=== PATIENT | male | born 1990 | race American Indian/Alaskan Native ===

== ENCOUNTER 2016-04-22 13:14 | Inpatient (IN) | payer OTHER ==
[2016-04-22 14:24] LABS: Basophils % (Auto) 0.4 % (0.0-1.8); Eosinophils % (Auto) 0.5 % (0.0-4.3); Hematocrit 38.3 % (35.5-45.6); Mean Corpuscular HGB Conc 31 % (32-34); Platelet Count 341 K/mm3 (140-440); Red Blood Count 5.57 M/mm3 (3.65-5.03); Red Cell Distribution Width 15.4 % (13.2-15.2); White Blood Count 12.2 K/mm3 (4.5-11.0)
[2016-04-22 14:36] LABS: Mean Corpuscular Hemoglobin 22 pg (28-32); Mean Corpuscular Volume 69 fl (84-94)
[2016-04-22 14:42] LABS: Anion Gap 15 mmol/L; Blood Urea Nitrogen 8 mg/dL (9-20); Calcium 8.9 mg/dL (8.4-10.2); Carbon Dioxide 27 mmol/L (22-30); Chloride 100.8 mmol/L (98-107); Glucose 129 mg/dL (75-100); Sodium 139 mmol/L (137-145)
[2016-04-22] MEDS ORDERED: MORPHINE IV ONE (15:09)
[2016-04-22] MEDS ORDERED: NACL 0.9% 1000 ML 1,000 ML IV ONE (15:09)
--- NOTE | 2016-04-22 15:13 | Emergency Department Report ---
HPI - General Chief Complaint: Chest Pain Time Seen by Provider: 04/22/16 15:00 - HPI HPI: The patient is a 25-year-old male who presents for evaluation of chest pain. The patient reports left-sided chest pain since 2 PM yesterday, constant since onset, aching and pressure-like in quality, radiating into the left arm, currently 7 out of 10 in severity. He states that his pain is exacerbated with taking deep breaths. He says that his symptoms began after completing a cardio workout yesterday, 30min- 1 hour duration. His symptoms began shortly after his workout. The patient denies fever, cough, syncope, dyspnea, hemoptysis, unilateral leg swelling, recent immobilization, history of DVT or PE, hx cancer , history of congenital heart disease, or history of sudden cardiac in family members. He shares that he consumes marijuana, but denies cocaine use, amphentermine use, meth the use, or other stimulant use. ED Past Medical Hx - Past Medical History Hx Diabetes: Yes (PREDIABETIC) Additional medical history: "PREANEMIC" - Surgical History Past Surgical History?: No - Social History Smoking Status: Never Smoker Substance Use Type: Alcohol, Marijuana - Medications Home Medications: Home Medications Medication Instructions Recorded Confirmed Last Taken Type No Known Home Medications [No 04/22/16 04/22/16 Unknown History Reported Home Medications] ED Review of Systems ROS: Stated complaint: CHEST PAIN Other details as noted in HPI Constitutional: denies: fever ENT: denies: throat or neck pain Respiratory: denies: cough, shortness of breath Cardiovascular: reports chest pain Endocrine: denies unexplained weight loss or gain Gastrointestinal: denies: abdominal pain, nausea Genitourinary: denies: dysuria Musculoskeletal: denies: leg swelling Skin: denies: rash Neurological: denies: headache Hematological/Lymphatic: denies: easy bleeding or easy bruising Psych: denies sadness or hopelessness Physical Exam - Physical Exam Vital Signs: Vital Signs 04/22/16 04/22/16 04/22/16 13:31 15:00 15:02 Temperature 98.6 F Pulse Rate 74 100 H 101 H Respiratory 18 18 23 Rate Blood Pressure 120/75 O2 Sat by Pulse 98 100 100 Oximetry Physical Exam: General: well-nourished, well-developed, no acute distress Head: Normocephalic, atraumatic Eyes: normal sclera ENT: Mucous membranes are pink and moist Neck: trachea midline, neck supple, No neck stiffness, no cervical adenopathy Respiratory: Breath sounds equal bilaterally, no wheezing, rales, or rhonchi Cardio: S1 and S2 present, no murmurs, rubs, gallops, capillary refill is brisk Musc: No pitting edema Skin: No rash Neuro: no facial drooping, normal speech Psych: Normal affect ED Course Vital Signs 04/22/16 04/22/16 04/22/16 13:31 15:00 15:02 Temperature 98.6 F Pulse Rate 74 100 H 101 H Respiratory 18 18 23 Rate Blood Pressure 120/75 O2 Sat by Pulse 98 100 100 Oximetry ED Medical Decision Making - Lab Data Result diagrams: 04/22/16 14:11 04/22/16 14:11 - Medical Decision Making The patient was seen and examined by myself. The patient is placed on a monitor technician and continuous pulse ox. On initial evaluation, the patient was found to be in no distress. Evaluation orders were placed. EKG exhibited nonspecific T wave changes, and is negative for ST elevation or depression suggestive of acute cardiac infarct. The patient is given IV morphine for his pain. Lab results revealed elevated troponin level of 1.5, consistent with non- ST elevation NC. Chest x-rays negative the patient given a tablet of aspirin. IV heparin bolus and infusion are ordered. CT angiogram of the chest is negative for pulmonary embolism or aortic dissection. The on-call hospitalist service was contacted. They agreed to admit the patient for further treatment and close monitoring. The ED admit order was placed. The patient was admitted in guarded condition. Critical care attestation.: If time is entered above; I have spent that time in minutes in the direct care of this critically ill patient, excluding procedure time. ED Disposition Clinical Impression: Acute chest pain, NSTEMI (non-ST elevated myocardial infarction) Disposition: OP ADMITTED IP TO THIS HOSP Is pt being admited?: Yes Does the pt Need Aspirin: Yes Condition: Serious Time of Disposition: 15:03
--- NOTE | 2016-04-22 15:18 | XRay Report ---
CHEST ONE VIEW INDICATION: Left-sided chest pain for 2 days. Smoker. COMPARISON: None similar at this institution. FINDINGS: Portable, single, frontal chest radiograph demonstrates normal cardiomediastinal silhouette. Clear lungs. Unremarkable bones. Extrinsic EKG leads. CONCLUSION: No acute disease in the chest. Thank you for the opportunity to participate in this patient's care.
[2016-04-22 15:31] LABS: Urine Drugs of Abuse Note Disclamer
--- NOTE | 2016-04-22 15:40 | Admit Criteria Form ---
Admission Criteria Documentation: MYOCARDIAL INFARCTION Clinical Indications for Admission to Inpatient Care (Place 'X' for any and all applicable criteria): Admission is indicated for ANY ONE of the following (1)(2)(3)(4): [X ]I. Acute UT [ ]II. Contraindications and/or Inappropriate clinical situations for Observational Care in patients with Myocardial Infarction, when ANY ONE of the following is required: [ ]a) Patient with High risk of cardiac embolism (e.g, patients with previous cardiac embolism, LVEF < 40%, age >75 and patients with prosthetic valve) 18 [ ]b) Patient with Moderate risk including DM patient, CAD and patient aged 65-75 18 [ ]c) Patient with any change in cardiac biomarker especially troponin should be managed as high risk in an inpatient setting 19 [ ]d) Physician judgement irrespective of ECG and other diagnostic findings 20 [ ]III.General contraindications and/or Inappropriate clinical situations for Observational Care in patients with Myocardial Infarction, when ANY ONE of the following is required: [ ]a) Prediction of prolongation of LOS based on ANY ONE of the following may be considered as a contraindication for observational care 2, 3, 4, 5, 6, 7, 8, 9, 10, 11 [ ]i) Age > 65 yrs. [ ]ii) Patient arriving by ambulance [ ]iii) Patient with high acuity [ ]iv) Patient requiring vital sign monitoring [ ]v) Patient on IV medication [ ]b) Systolic blood pressures 180mmHg 3,12 [ ]c) Patient with altered mental status including delirium and other alteration of consciousness, (3) [ ]d) Patient whose discharge disposition will be to a care home home or rehabilitation home should not be managed in Emergency Department Observation Unit. CMS rule requires 3 days hospital stay before such placement. 3,13 [ ]e) Patient with failure to thrive due to broad array of etiologies 3 ,16,17 [ ]f) Inability to ambulate 3,14 Extended stay beyond goal length of stay may be needed for (1)(18)(20)(24)(25): [ ]a) Hemodynamic instability, persisting symptoms after intensive medical management, or recurring severe, prolonged symptoms [ ]b) Intravascular procedural complications such as acute vessel closure, stent thrombosis, stent malposition, or vessel dissection (26)(27)(28) [ ]c) Extravascular procedural complications such as retroperitoneal hematoma , pericardial effusion, or cardiac tamponade [ ]d) Entry site complications causing bleeding, hematoma or distal ischemia and requiring ongoing monitoring, surgical repair or surgical thrombectomy(29) [ ]e) Dangerous arrhythmia [ ]f) Complicated percutaneous coronary intervention (e.g., unsuccessful percutaneous coronary intervention or percutaneous coronary intervention of non- sleetmute vessel) [ ]g) Urgent or emergent surgery for complications of UT (e.g., ventricular rupture, valvular insufficiency) [ ]h) Surgical revascularization via coronary artery bypass graft [ ]i) Heart failure (e.g., pulmonary edema) [ ]j) Unstable pulmonary comorbidities, including COPD or pneumonia (31) [ ]k) Acute renal failure The original [employer] content created by [employer] has been revised. The portions of the content which have been revised are identified through the use of italic text or in bold, and [employer] has neither reviewed nor approved the modified material. All other unmodified content is copyright [facility] Please see references footnoted in the original [facility] edition 2016 Admission Criteria Met: Yes
[2016-04-22 15:46] LABS: Cholesterol 173 mg/dL (50-199); HDL Cholesterol 22 mg/dL (40-59); LDL Cholesterol,Direct 134 mg/dL (50-130); Triglycerides 85 mg/dL (2-149)
[2016-04-22 15:50] LABS: Creatine Kinase MB 42.7 ng/mL (0.0-4.0)
[2016-04-22] MEDS ORDERED: BABY ASPIRIN PO ONE (15:54)
[2016-04-22] MEDS ORDERED: HEPARIN 10,000 UNITS/10 ML IV ONE (15:55)
--- NOTE | 2016-04-22 15:57 | Cat Scan Report ---
CTA CHEST INDICATION: Pleuritic chest pain, elevated troponin. COMPARISON: None similar. FINDINGS: Chest CTA performed following intravenous administration of 100 cc of Omnipaque 350. Rotational MIP's also obtained. Top normal heart size with slightly prominent contour towards the apex. No effusions. No aortic aneurysm, dissection or suspicious pulmonary arterial filling defects. No size significant adenopathy with few small AP window lymph nodes measuring up to 5 mm in the short axis, axial image 81, series 2. Minimal residual thymus with normal mediastinal contours. Normal airway. Unremarkable thyroid. Clear lungs. Images through included upper abdomen reveal no significant abnormality. Unremarkable bones. CONCLUSION: No CT evidence of pulmonary embolism with few other incidental findings, as above. Thank you for the opportunity to participate in this patient's care.
[2016-04-22] MEDS ORDERED: MILK OF MAGNESIA PO PRN (16:15)
[2016-04-22] MEDS ORDERED: MORPHINE IV PRN (16:15)
[2016-04-22] MEDS ORDERED: ZOFRAN IV PRN (16:15)
[2016-04-22] MEDS ORDERED: DULCOLAX PR PRN (16:15)
[2016-04-22] MEDS ORDERED: TYLENOL PO PRN (16:15)
[2016-04-22] MEDS ORDERED: ZOCOR PO ONE (16:30)
[2016-04-22] MEDS ORDERED: HEPARIN/ 0.45% NACL-25,000 UNIT/500 ML 25,000 UNIT/500 ML BAG IV SCH (17:00)
[2016-04-22] MEDS ORDERED: ZOCOR ONE (17:12)
[2016-04-22 17:23] LABS: Hematocrit 35.8 % (35.5-45.6); Hemoglobin 11.2 gm/dl (11.8-15.2)
[2016-04-22 17:31] LABS: INR 1.01 (0.87-1.13)
[2016-04-22 17:32] LABS: Partial Thromboplastin Time 32.6 Sec. (24.2-36.6)
--- NOTE | 2016-04-22 18:23 | History and Physical Report ---
History of Present Illness Date of examination: 04/22/16 Date of admission: 04/22/16 16:16 Chief complaint: Chest pain History of present illness: Patient is a pleasant 5-year-old male with no significant past medical history who presents to the ER will complain of intermittent chest pain and left sided since 2 PM yesterday aching in nature and also pressure-like sensation radiating down to the left arm. Was a 7/10 in intensity at the time of presented to the ER. The patient reports that this started about an hour after a 1 hour intense cardio exercise. He reports no aggravating or alleviating factors. He reports that he is chest pain-free at this time. It was associated with some shortness of breath but no diaphoresis. While he denies cocaine use he doesn't endorse to marijuana use. He also denies use of amphetamines metformin and sliding of the stimulants. He denies use of drugs like monster or red bull. The patient reports that he has had intermittent chest pain since he was a kid. He denies history of any sudden cardiac in the family although states that his paternal grandfather did have an MO at the age of 61. ROS Constitutional: No fever, fatigue or weight loss. Skin: No rash. Eyes: No recent vision problems or eye pain. ENT: No congestion, ear pain, or sore throat. Endocrine: No thyroid problems. Cardiovascular: Reports chest pain radiated to the left arm Respiratory: No cough, shortness of breath, congestion, or wheezing. Gastrointestinal: No abdominal pain, nausea, vomiting, or diarrhea. Genitourinary: No dysuria. Musculoskeletal: No joint swelling. Neurologic: No seizures. Hematologic: No unusual bruising or bleeding. Psychiatric: No psychiatric problems, hallucinations or depression. All other systems reviewed and otherwise negative. Past History Past Medical History: other (diabetic) Past Surgical History: No surgical history Social history: smoking, full code. denies: alcohol abuse, prescription drug abuse, IV drug use Family history: CAD (paternal grandfather) Medications and Allergies Allergies Allergy/AdvReac Type Severity Reaction Status Date / Time No Known Allergies Allergy Unverified 04/22/16 13:36 Home Medications Medication Instructions Recorded Confirmed Last Taken Type No Known Home Medications [No 04/22/16 04/22/16 Unknown History Reported Home Medications] Active Meds: Active Medications Acetaminophen (Tylenol) 650 mg PO Q4H PRN PRN Reason: Pain MILD(1-3)/Fever >100.5/SALDANA Aspirin (Aspirin) 325 mg PO QDAY EVA Bisacodyl (Dulcolax) 10 mg HI QDAY PRN PRN Reason: Constipation unrelieved by MOM Famotidine (Pepcid) 20 mg PO BID EVA Heparin Sodium/Sodium Chloride (Heparin/ 0.45% Nacl-25,000 Unit/500 Ml) 25,000 unit in 500 mls @ 20 mls/hr IV TITRATE EVA; 1,000 UNITS/HR PRN Reason: Protocol Magnesium Hydroxide (Milk Of Magnesia) 30 ml PO Q4H PRN PRN Reason: Constipation Morphine Sulfate (Morphine) 2 mg IV Q4H PRN PRN Reason: Pain, Moderate (4-6) Ondansetron HCl (Zofran) 4 mg IV Q8H PRN PRN Reason: N/V unrelieved by Reglan Exam - Physical Exam Narrative exam: VITAL SIGNS: Reviewed. GENERAL: The patient appeared well nourished and normally developed. Vital signs as documented. HEAD: No signs of head trauma. EYES: Pupils are equal. Extraocular motions intact. EARS: Hearing grossly intact. MOUTH: Oropharynx is normal. NECK: No adenopathy, no JVD. CHEST: Chest with clear breath sounds bilaterally. No wheezes, rales, or rhonchi. CARDIAC: Regular rate and rhythm. S1 and S2, without murmurs, gallops, or rubs. VASCULAR: No Edema. Peripheral pulses normal and equal in all extremities. ABDOMEN: Soft, without detectable tenderness. No sign of distention. No rebound or guarding, and no masses palpated. Bowel Sounds normal. MUSCULOSKELETAL: Good range of motion of all major joints. Extremities without clubbing, cyanosis or edema. NEUROLOGIC EXAM: Alert and oriented x 3. No focal sensory or strength deficits. Speech normal. Follows commands. PSYCHIATRIC: Mood normal. SKIN: No rash or lesions. - Constitutional Vitals: Temp Pulse Resp BP Pulse Ox 98.6 F 81 21 116/68 97 04/22/16 13:31 04/22/16 18:00 04/22/16 18:00 04/22/16 18:00 04/22/16 18:00 Results - Labs CBC & Chem 7: 04/22/16 16:17 04/22/16 14:11 Labs: Laboratory Last Values WBC 12.2 K/mm3 (4.5-11.0) H 04/22/16 14:11 RBC 5.57 M/mm3 (3.65-5.03) H 04/22/16 14:11 Hgb 11.2 gm/dl (11.8-15.2) L 04/22/16 16:17 Hct 35.8 % (35.5-45.6) 04/22/16 16:17 MCV 69 fl (84-94) L 04/22/16 14:11 MCH 22 pg (28-32) L 04/22/16 14:11 MCHC 31 % (32-34) L 04/22/16 14:11 RDW 15.4 % (13.2-15.2) H 04/22/16 14:11 Plt Count 321 K/mm3 (140-440) 04/22/16 16:17 Lymph % (Auto) 11.9 % (13.4-35.0) L 04/22/16 14:11 Harvey % (Auto) 5.5 % (0.0-7.3) 04/22/16 14:11 Eos % (Auto) 0.5 % (0.0-4.3) 04/22/16 14:11 Baso % (Auto) 0.4 % (0.0-1.8) 04/22/16 14:11 Lymph # 1.5 K/mm3 (1.2-5.4) 04/22/16 14:11 Harvey # 0.7 K/mm3 (0.0-0.8) 04/22/16 14:11 Eos # 0.1 K/mm3 (0.0-0.4) 04/22/16 14:11 Baso # 0.0 K/mm3 (0.0-0.1) 04/22/16 14:11 Seg Neutrophils % 81.7 % (40.0-70.0) H 04/22/16 14:11 Seg Neutrophils # 10.0 K/mm3 (1.8-7.7) H 04/22/16 14:11 PT 13.2 Sec. (12.2-14.9) 04/22/16 16:17 INR 1.01 (0.87-1.13) 04/22/16 16:17 APTT 32.6 Sec. (24.2-36.6) 04/22/16 16:17 Sodium 139 mmol/L (137-145) 04/22/16 14:11 Potassium 4.0 mmol/L (3.6-5.0) 04/22/16 14:11 Chloride 100.8 mmol/L (98-107) 04/22/16 14:11 Carbon Dioxide 27 mmol/L (22-30) 04/22/16 14:11 Anion Gap 15 mmol/L 04/22/16 14:11 BUN 8 mg/dL (9-20) L 04/22/16 14:11 Creatinine 0.8 mg/dL (0.8-1.5) 04/22/16 14:11 Estimated GFR > 60 ml/min 04/22/16 14:11 BUN/Creatinine Ratio 10.00 % 04/22/16 14:11 Glucose 129 mg/dL (75-100) H 04/22/16 14:11 Calcium 8.9 mg/dL (8.4-10.2) 04/22/16 14:11 Total Creatine Kinase 887 units/L (55-170) H 04/22/16 16:17 CK-MB (CK-2) 42.7 ng/mL (0.0-4.0) H 04/22/16 15:17 Troponin T 1.520 ng/mL (0.00-0.029) H* 04/22/16 15:17 NT-Pro-B Natriuret Pep 146.0 pg/mL (0-450) 04/22/16 15:17 Triglycerides 85 mg/dL (2-149) 04/22/16 14:11 Cholesterol 173 mg/dL (50-199) 04/22/16 14:11 LDL Cholesterol Direct 134 mg/dL (50-130) H 04/22/16 14:11 HDL Cholesterol 22 mg/dL (40-59) L 04/22/16 14:11 Cholesterol/HDL Ratio 7.86 % 04/22/16 14:11 Urine Opiates Screen Presumptive negative 04/22/16 15:25 Urine Methadone Screen Presumptive negative 04/22/16 15:25 Ur Barbiturates Screen Presumptive negative 04/22/16 15:25 Ur Phencyclidine Scrn Presumptive negative 04/22/16 15:25 Ur Amphetamines Screen Presumptive negative 04/22/16 15:25 U Benzodiazepines Scrn Presumptive negative 04/22/16 15:25 Urine Cocaine Screen Presumptive negative 04/22/16 15:25 U Marijuana (THC) Screen Presumptive positive 04/22/16 15:25 Drugs of Abuse Note Disclamer 04/22/16 15:25 - Imaging and Cardiology EKG: image reviewed (normal sinus rhythm on my personal review) Chest x-ray: image reviewed (no acute pathology) CT scan - chest: image reviewed (no acute pathology on my personal review) Assessment and Plan Assessment and plan: Patient is a pleasant 5-year-old male with no significant past medical history who presents to the ER will complain of intermittent chest pain and left sided since 2 PM yesterday aching in nature and also pressure-like sensation radiating down to the left arm. Was a 7/10 in intensity at the time of presented to the ER. The patient reports that this started about an hour after a 1 hour intense cardio exercise. He reports no aggravating or alleviating factors. He reports that he is chest pain-free at this time. It was associated with some shortness of breath but no diaphoresis. While he denies cocaine use he doesn't endorse to marijuana use. He also denies use of amphetamines metformin and sliding of the stimulants. He denies use of drugs like monster or red bull. The patient reports that he has had intermittent chest pain since he was a kid. He denies history of any sudden cardiac in the family although states that his paternal grandfather did have an MO at the age of 61. * Non-ST elevated MO * Marijuana abuse * Microcytosis * Leukocytosis Plan * We'll admit patient to telemetry * Consult cardiology * Rule out rhabdomyolysis as a concurrent part of this * Extensive counseling provided to the patient on marijuana use patient verbalized understanding 15 minutes spent on counseling. * Start patient on management for unstable angina/and STEMI protocol * Morphine when necessary, oxygen, aspirin, statin * Obtain an echocardiogram * DVT and GI prophylaxis Advance Directives: Yes Plan of care discussed with patient/family: Yes
[2016-04-22 21:16] LABS: Creatine Kinase MB 30.5 ng/mL (0.0-4.0)
[2016-04-22] MEDS: PEPCID PO SCH (22:27)
[2016-04-22 23:31] LABS: Creatine Kinase MB 22.4 ng/mL (0.0-4.0)
[2016-04-23 06:27] LABS: Basophils % (Auto) 0.6 % (0.0-1.8); Hematocrit 37.9 % (35.5-45.6); Mean Corpuscular HGB Conc 32 % (32-34); Platelet Count 318 K/mm3 (140-440); Red Blood Count 5.56 M/mm3 (3.65-5.03); Red Cell Distribution Width 14.7 % (13.2-15.2); White Blood Count 11.1 K/mm3 (4.5-11.0)
[2016-04-23 06:30] LABS: Mean Corpuscular Hemoglobin 22 pg (28-32); Mean Corpuscular Volume 68 fl (84-94)
--- NOTE | 2016-04-23 09:39 | Consultation ---
History of Present Illness Consult date: 04/23/16 Consult reason: elevated troponin History of present illness: This is a 25yr old male with no significant past medical history whom is admitted with chest pain. Patient reports chest pain has progressively worsened over the last week. He associates chest pain with shortness of breath and dizziness. He denies palpitations. There was no syncope. An ECG shows a normal sinus rhythm. Cardiac enzymes measured in the ED reveals a CK of 773, CK/MB of 22.4 with an index of 2.8. Cardiac consultation requested. Past History Past Medical History: other (diabetic) Past Surgical History: No surgical history Social history: smoking, full code. denies: alcohol abuse, prescription drug abuse, IV drug use Family history: CAD (paternal grandfather) Medications and Allergies Allergies Allergy/AdvReac Type Severity Reaction Status Date / Time No Known Allergies Allergy Unverified 04/22/16 13:36 Home Medications Medication Instructions Recorded Confirmed Last Taken Type No Known Home Medications [No 04/22/16 04/22/16 Unknown History Reported Home Medications] Active Meds: Active Medications Acetaminophen (Tylenol) 650 mg PO Q4H PRN PRN Reason: Pain MILD(1-3)/Fever >100.5/SALDANA Aspirin (Aspirin) 325 mg PO QDAY EVA Bisacodyl (Dulcolax) 10 mg HI QDAY PRN PRN Reason: Constipation unrelieved by MOM Famotidine (Pepcid) 20 mg PO BID EVA Last Admin: 04/22/16 22:27 Dose: 20 mg Heparin Sodium/Sodium Chloride (Heparin/ 0.45% Nacl-25,000 Unit/500 Ml) 25,000 unit in 500 mls @ 20 mls/hr IV TITRATE EVA; 1,000 UNITS/HR PRN Reason: Protocol Influenza Virus Vaccine Quadrival (Fluarix Quad [id number](36 Mos+)) 60 mcg IM .ONCE ONE Stop: 04/23/16 12:01 Magnesium Hydroxide (Milk Of Magnesia) 30 ml PO Q4H PRN PRN Reason: Constipation Morphine Sulfate (Morphine) 2 mg IV Q4H PRN PRN Reason: Pain, Moderate (4-6) Ondansetron HCl (Zofran) 4 mg IV Q8H PRN PRN Reason: N/V unrelieved by Reglan Physical Examination Vital Signs Temp Pulse Resp BP Pulse Ox 98.6 F 74 18 120/75 98 04/22/16 13:31 04/22/16 13:31 04/22/16 13:31 04/22/16 13:31 04/22/16 13:31 General appearance: no acute distress HEENT: Positive: PERRL Neck: Positive: trachea midline Cardiac: Positive: Reg Rate and Rhythm Lungs: Positive: Decreased Breath Sounds Neuro: Positive: Grossly Intact Extremities: Present: normal Results 04/23/16 05:18 04/22/16 14:11 Cardiac Enzymes 04/22/16 04/22/16 Range/Units 20:12 22:38 CK-MB (CK-2) 30.5 H 22.4 H (0.0-4.0) ng/mL Coagulation 04/22/16 Range/Units 16:17 PT 13.2 (12.2-14.9) Sec. INR 1.01 (0.87-1.13) APTT 32.6 (24.2-36.6) Sec. CBC 04/22/16 04/23/16 Range/Units 16:17 05:18 WBC 11.1 H (4.5-11.0) K/mm3 RBC 5.56 H (3.65-5.03) M/mm3 Hgb 11.2 L 12.0 (11.8-15.2) gm/dl Hct 35.8 37.9 (35.5-45.6) % Plt Count 321 318 (140-440) K/mm3 Lymph # 2.6 (1.2-5.4) K/mm3 Jerauld # 1.1 H (0.0-0.8) K/mm3 Eos # 0.1 (0.0-0.4) K/mm3 Baso # 0.1 (0.0-0.1) K/mm3 EKG interpretations - Telemetry EKG Rhythm: Sinus Rhythm Assessment and Plan Chest pain Rhabomyolysis Elevated troponin Recommend: Echocardiogram for LVEF assessment. Will proceed with a cardiac cath for further cardiac evaluation.
[2016-04-23] MEDS ORDERED: ASPIRIN PO SCH (10:00)
[2016-04-23] MEDS ORDERED: ASPIRIN ONE (10:32)
[2016-04-23] MEDS ORDERED: HEPARIN/NS 5000 UNIT/500ML(CATH LAB) 1,000 ML IR ONE (10:55)
[2016-04-23] MEDS ORDERED: NACL 0.9% 500 ML 500 ML ONE (10:58)
[2016-04-23] MEDS: CALAN ONE ×2 (11:24→11:54)
[2016-04-23] MEDS: HEPARIN 10,000 UNITS/10 ML ONE ×2 (11:25→11:54)
[2016-04-23] MEDS: SUBLIMAZE ONE ×2 (11:26→11:45)
[2016-04-23] MEDS: XYLOCAINE 2% INFILTRATI ONE ×3 (11:26→11:52)
[2016-04-23] MEDS: VERSED ONE ×2 (11:26→11:45)
[2016-04-23] MEDS: NITROGLYCERIN SYRINGE 3 ML ONE ×2 (11:27→11:54)
[2016-04-23] MEDS ORDERED: FLUARIX QUAD 2016-2017(36 MOS+) IM ONE ×2 (12:00→14:15)
--- NOTE | 2016-04-23 12:15 | Event Note ---
Date: 04/23/16 Cardiac cath done via R radial: Normal coronaries, LVEF 45-50%. Cardiac status OK for discharge today.
--- NOTE | 2016-04-23 12:54 | Cardiac Catherization Report ---
REASON FOR PROCEDURE: The patient is a 25-year-old man who presented with chest pain while he was exercising. The pain was atypical, but the cardiac isoenzymes were elevated, in the setting of elevated skeletal muscle enzymes. Due to the elevated cardiac isoenzymes, he was recommended to undergo cardiac catheterization. DESCRIPTION OF PROCEDURE: The patient was prepped and draped in a sterile fashion after informed consent. The right radial artery was entered using the Seldinger technique and a 6-Belgian sheath was deployed. Routine radial cocktail was administered via the sheath. A #3.5 left Nisha catheter was used for left coronary angiography. A #4 right Nisha was used for right coronary angiography. The pigtail catheter was used for left ventricular angiography. The catheters were removed, sheaths removed, and hemostasis achieved using manual compression. The patient was returned to the postprocedure unit in stable condition. There were no complications. FINDINGS: HEMODYNAMICS: Left ventricular end-diastolic pressure was 10. Ascending aortic pressure was 105/63. There was no significant pressure gradient on pullback across the aortic valve. CORONARY ANGIOGRAPHY: The left main coronary artery was angiographically normal. The left anterior descending artery and its diagonal branches were angiographically normal. The circumflex artery and its obtuse marginal branches were angiographically normal. The right coronary artery was dominant and similarly angiographically normal. Left ventricular systolic function was at the lower limits of normal, estimated ejection fraction 45-50%. CONCLUSION: 1. Essentially, angiographically normal coronary arteries. 2. Left ventricular systolic function at the lower limits of normal, ejection fraction 45-50%. RECOMMENDATION: Risk factor modification and medical therapy. JOB# [id number] CA/NTS
[2016-04-23] MEDS ORDERED: NACL 0.9% 1000 ML 1,000 ML IV SCH (13:00)
[2016-04-23] MEDS: PEPCID PO SCH (14:14)
--- NOTE | 2016-04-23 15:01 | Discharge Summary ---
Providers - Providers Date of Admission: 04/22/16 16:16 Date of discharge: 04/23/16 Attending physician: KIRILL HI MD 04/23/16 12:15 Consult to Cardiac Rehabilitation [CONS] Routine Reason For Exam: Cardiac Rehab Evaluation Primary care physician: [employer] Hospitalization Reason for admission: CHEST PAIN Condition: Stable Hospital course: Patient is a pleasant 5-year-old male with no significant past medical history who presents to the ER will complain of intermittent chest pain and left sided since 2 PM yesterday aching in nature and also pressure-like sensation radiating down to the left arm. Was a 7/10 in intensity at the time of presented to the ER. The patient reports that this started about an hour after a 1 hour intense cardio exercise. He reports no aggravating or alleviating factors. He reports that he is chest pain-free at this time. It was associated with some shortness of breath but no diaphoresis. While he denies cocaine use he doesn't endorse to marijuana use. He also denies use of amphetamines metformin and sliding of the stimulants. He denies use of drugs like monster or red bull. The patient reports that he has had intermittent chest pain since he was a kid. He denies history of any sudden cardiac in the family although states that his paternal grandfather did have an ME at the age of 61. Patient proceeded to have a cardiac catheterization which was unremarkable for noted EF of 45-50%. Provided counseling and need to avoid marijuana and tobacco use. Also to cut down on the straining his exercise. He is to follow with cardiology outpatient. Possibly repeat echo to show no worsening cardiomyopathy. His condition at this time is stable. * Rhabdomyolysis * Exertional chest pain -likely musculoskeletal secondary to excessive water * NSTEMI type 2 * Marijuana abuse * Microcytosis * Leukocytosis Disposition: DISCHARGED TO HOME OR SELFCARE Time spent for discharge: 35 MINS Core Measure Documentation - Palliative Care Palliative Care/ Comfort Measures: Not Applicable - Core Measures Any of the following diagnoses?: none - VTE Discharge Requirements Deep Vein Thrombosis/Pulmonary Embolism Present on Admission: No Exam - Physical Exam Narrative exam: VITAL SIGNS: Reviewed. GENERAL: The patient appeared well nourished and normally developed. Vital signs as documented. HEAD: No signs of head trauma. EYES: Pupils are equal. Extraocular motions intact. EARS: Hearing grossly intact. MOUTH: Oropharynx is normal. NECK: No adenopathy, no JVD. CHEST: Chest with clear breath sounds bilaterally. No wheezes, rales, or rhonchi. CARDIAC: Regular rate and rhythm. S1 and S2, without murmurs, gallops, or rubs. VASCULAR: No Edema. Peripheral pulses normal and equal in all extremities. ABDOMEN: Soft, without detectable tenderness. No sign of distention. No rebound or guarding, and no masses palpated. Bowel Sounds normal. MUSCULOSKELETAL: Good range of motion of all major joints. Extremities without clubbing, cyanosis or edema. NEUROLOGIC EXAM: Alert and oriented x 3. No focal sensory or strength deficits. Speech normal. Follows commands. PSYCHIATRIC: Mood normal. SKIN: No rash or lesions. - Constitutional Vitals: Temp Pulse Resp BP Pulse Ox 97.6 F 87 18 117/76 99 04/23/16 13:00 04/23/16 13:30 04/23/16 13:30 04/23/16 13:30 04/23/16 12:53 Plan Activity: advance as tolerated Diet: regular Special Instructions: record daily BP diary, smoking cessation (AVOID marijuana also) Follow up with: PRIMARY MD MIGUEL A [Primary Care Provider] - 3-5 Days RAMON HARP MD [Staff Physician] - 6 Weeks
[2016-04-23 18:50] VITALS: BP 119/73
== END 2016-04-23 18:50 | disposition home or self-care (01) | DRG 281 ==
LOC: ED 13:14 → 4A 16:16
PROVIDERS: ADMIT Internal Medicine; ATTEND Internal Medicine
PROC: 4A023N7 Measurement of Cardiac Sampling and Pressure, Left Heart, Percutaneous Approach (ICD-10-PCS; principal; 2016-04-23)
PROC: B2111ZZ Fluoroscopy of Multiple Coronary Arteries using Low Osmolar Contrast (ICD-10-PCS; 2016-04-23)
PROC: B2151ZZ Fluoroscopy of Left Heart using Low Osmolar Contrast (ICD-10-PCS; 2016-04-23)
DX: I21.4 Non-ST elevation (NSTEMI) myocardial infarction (principal); M62.82 Rhabdomyolysis; F17.210 Nicotine dependence, cigarettes, uncomplicated; R73.03 Prediabetes; F12.10 Cannabis abuse, uncomplicated; R71.8 Other abnormality of red blood cells; D72.829 Elevated white blood cell count, unspecified; Z86.718 Personal history of other venous thrombosis and embolism; Z82.49 Family history of ischemic heart disease and other diseases of the circulatory system; Z86.711 Personal history of pulmonary embolism; Z85.9 Personal history of malignant neoplasm, unspecified; Z86.74 Personal history of sudden cardiac arrest; Z71.51 Drug abuse counseling and surveillance of drug abuser
CPT/HCPCS: 36415; 71010; 71275; 80048; 80061; 80307; 82550; 82553; 83880; 84484; 85014; 85018; 85025; 85049; 85520; 85610; 85730; 90686; 93005; 93010; 93306; 93458; 96374; C1894; J1644; J2250; J2270; J3010; J7030; J7040; Q9967